=== PATIENT | female | born 1975 | race Caucasian/White ===

== ENCOUNTER 2020-10-29 15:27 | Outpatient (REF) | payer MEDICARE, MEDICAID, SELFPAY ==
[2020-10-29 17:43] LABS: MANUAL DIFF FLAG NO
[2020-10-29 17:46] LABS: Basophils Percent Auto 0.3 % (0-2); Eosinophils Absolute Auto 0.1 X10*3/uL (0.0-0.4); Hematocrit 41.1 % (37-47); Hemoglobin 13.8 g/dl (12.0-16.0); Imm Gran Abs Auto 0.01 X10*3/uL (0.00-0.03); Imm Gran Pct Auto 0.2 % (0.0-0.4); Lymphocytes Absolute Auto 1.7 X10*3/uL (1.2-4.9); Lymphocytes Percent Auto 28.2 % (20-40); Mean Corpuscular HGB Conc 33.6 g/dl (31.0-35.0); Mean Corpuscular Hemoglobin 33.7 pg (27.0-33.0); Mean Corpuscular Volume 100.2 fL (80-98); Mean Platelet Volume 8.9 fL (9.4-12.3); Monocytes Absolute Auto 0.2 X10*3/uL (0.1-1.2); Monocytes Percent Auto 3.8 % (2-11); Neutrophils Percent Auto 66.5 % (45-73); Platelet Count 356 X10*3/uL (160-400); Red Cell Distribution Width 14.2 % (11.0-16.0)
[2020-10-29 18:16] LABS: Alanine Aminotransferase 11 U/L (0-31); Albumin Level 4.5 g/dL (3.5-5.0); Alkaline Phosphatase 75 U/L (39-117); Anion Gap 12 (12-20); Aspartate Amino Transferase 16 U/L (5-31); Bilirubin Total 0.3 mg/dL (0.0-1.0); Blood Urea Nitrogen 11 mg/dL (9-16); Calcium 9.9 mg/dL (8.4-10.2); Carbon Dioxide 23 mmol/L (22-29); Chloride 108 mmol/L (96-108); Estimated Glomerular Filt Rate > 60; Glucose Random 92 mg/dL (60-115); Potassium 3.5 mmol/L (3.3-5.1); Sodium 139 mmol/L (135-145); Total Protein 7.3 g/dL (6.5-8.0)
[2020-10-29 18:26] LABS: Rheumatoid Factor < 15.0 IU/mL (<15.0)
[2020-10-29 18:34] LABS: Free T4 (Free Thyroxine) 0.88 ng/dL (0.71-1.85); Thyroid Stimulating Hormone 0.92 uIU/mL (0.32-4.0)
[2020-10-30 14:21] LABS: Anti Nuclear Antibody Screen NEGATIVE (NEGATIVE)
[2020-10-30 19:51] LABS: Thyroglobulin Antibodies <1 IU/mL (< or = 1); Thyroid Peroxidase Antibodies 3 IU/mL (<9)
[2020-10-30 22:16] LABS: Prot Elec - Albumin 4.4 g/dL (3.8-4.8); Prot Elec - Alpha1 0.3 g/dL (0.2-0.3); Prot Elec - Alpha2 0.8 g/dL (0.5-0.9); Prot Elec - Beta 1 0.5 g/dL (0.4-0.6); Prot Elec - Beta 2 0.4 g/dL (0.2-0.5); Prot Elec - Gamma 1.1 g/dL (0.8-1.7); Prot Elec - Total Protein 7.4 g/dL (6.1-8.1)
[2020-10-31 05:21] LABS: Immunoglobulin E 329 kU/L (<OR=114)
[2020-10-31 12:21] LABS: Antibody to SS-A Antigen <1.0 NEG AI (<1.0 NEG); Antibody to SS-B Antigen <1.0 NEG AI (<1.0 NEG); SM/Ribonucleoprotein Ab <1.0 NEG AI (<1.0 NEG); Smith Protein <1.0 NEG AI (<1.0 NEG)
[2020-10-31 13:31] LABS: Immunoglobulin A 236 mg/dL (47-310); Immunoglobulin M 45 mg/dL (50-300)
[2020-10-31 19:37] LABS: Immunoglobulin G Subclass 1 668 mg/dL (382-929); Immunoglobulin G Subclass 2 401 mg/dL (241-700); Immunoglobulin G Subclass 3 61 mg/dL (22-178); Immunoglobulin G Subclass 4 33.3 mg/dL (4-86); Immunoglobulin G Total 1246 mg/dL (600-1640)
[2020-11-01 20:06] LABS: Mycoplasma Pneumoniae - IgG 2.31 (<=0.90); Mycoplasma Pneumoniae - IgM 64 U/mL (<770)
[2020-11-04 14:35] LABS: Tetanus Antitoxiod Antibody 1.19 IU/mL
[2020-11-05 17:21] LABS: Histamine Release <16 % (<16); TSH 1.04 mIU/L (0.40-4.50); Thyroglobulin Abs <1 IU/mL (< OR = 1)
== END 2020-10-29 15:28 | disposition home or self-care (01) ==
LOC: HO.LAB 15:27
PROVIDERS: Visit Provider Nurse Practitioner Family
DX: T78.09XA Anaphylactic reaction due to other food products, initial encounter (principal); R53.83 Other fatigue; K59.00 Constipation, unspecified; L50.9 Urticaria, unspecified; R11.10 Vomiting, unspecified; R14.0 Abdominal distension (gaseous); J30.9 Allergic rhinitis, unspecified
CPT/HCPCS: 36415; 80053; 82784; 82785; 83520; 84165; 84439; 84443; 85025; 86038; 86039; 86235; 86317; 86343; 86376; 86431; 86738; 86774; 86800

== ENCOUNTER 2020-10-31 12:02 | Outpatient (REF) | payer MEDICARE, MEDICAID, SELFPAY ==
[2020-11-09 12:12] LABS: Creatinine 24Hr Urine 1208 mg/24 h (603 - 1783); N-Methylhistamine, 24Hr Urine 116 mcg/g Cr (30-200); Total Volume 1750 mL
== END 2020-10-31 12:03 | disposition home or self-care (01) ==
LOC: HO.LNP 12:02
PROVIDERS: Visit Provider Nurse Practitioner Family
DX: T78.09XA Anaphylactic reaction due to other food products, initial encounter (principal); R53.83 Other fatigue; L50.9 Urticaria, unspecified; R11.10 Vomiting, unspecified; R14.0 Abdominal distension (gaseous); K59.00 Constipation, unspecified
CPT/HCPCS: 81050; 82542

== ENCOUNTER 2021-12-17 00:38 | Emergency (ER) | payer MEDICARE, MEDICAID, SELFPAY ==
[2021-12-17 00:51] VITALS: BP 122/72; PULSE 90; RESP 14; TEMP 36.7; O2SAT 96; BMI 22.6
--- NOTE | 2021-12-17 00:53 | PC.NURSE ---
Patient arrives to hospital now in police custody from residential after staff found her with snoring respirations in her cell. +etoh this evening. patient endorses nausea and dizziness. she denies pain. she endorses disorientation, but is able to state she's in the hospital and the year. she is speaking full, clear sentences.
--- NOTE | 2021-12-17 01:06 | ECG_ITS ---
Test Reason : SYNCOPE Blood Pressure : / mmHG Vent. Rate : 088 BPM Atrial Rate : 088 BPM P-R Int : 138 ms QRS Dur : 104 ms QT Int : 384 ms P-R-T Axes : 073 024 049 degrees QTc Int : 464 ms Normal sinus rhythm Incomplete right bundle branch block Borderline ECG No previous ECGs available Referred By: Joann Valentine Electronically Signed By:ALEXY LINDQUIST MD
--- NOTE | 2021-12-17 01:09 | ED_ITS ---
HPI - General Adult General Chief complaint: Altered Mental Status Stated complaint: etoh, pd custody Time Seen by Provider: 12/17/21 00:53 Source: patient, EMS and police Mode of arrival: EMS Limitations: no limitations History of Present Illness HPI narrative: Patient comes to the emergency room via EMS and police custody. Patient was found with snoring respirations in her cell. Patient denies using drugs. P atient admits to using alcohol this evening. Patient denies chest pain or shortness of breath. Patient is not sure if she passed out or had a syncopal episode. At this time, patient feels a bit nauseous, and lightheaded. Patient denies falling, hitting her head or losing consciousness. Related Data Allergies Allergy/AdvReac Type Severity Reaction Status Date / Time adhesive [ADHESIVE] Allergy Unknown HIVES Unverified 11/15/19 19:43 fluoxetine [From PROZAC] Allergy Unknown UNKNOWN Unverified 11/15/19 19:43 gabapentin [GABAPENTIN] Allergy Unknown SUICIDAL Unverified 11/15/19 19:43 IDEATIONS iodine [IODINE] Allergy Unknown HIVES Unverified 11/15/19 19:43 lamotrigine [LAMOTRIGINE] Allergy Unknown PABLO Unverified 11/15/19 19:43 JORGE SYNDROME polymyxin B [From POLYTRIM] Allergy Unknown ITCHING Unverified 11/15/19 19:43 trimethoprim [From POLYTRIM] Allergy Unknown ITCHING Unverified 11/15/19 19:43 MONASTAT Allergy Unknown BURNING Uncoded 11/15/19 19:43 ITCHING PAIN Review of Systems Review of Systems: Constitutional : No Weight loss, No Fever, No Chills, No Night Sweats, No Fatigue, No Malaise ENT/Mouth : No Hearing loss, No Ear Pain, No Nasal Congestion, No Sinus Pain, No Hoarseness, No sore throat, No Rhinorrhea, No Swallowing Difficulty Eyes: No Eye Pain, No Swelling, No Redness, No Foreign Body, No Discharge, No Vision Changes Cardiovascular : No Chest Pain, No SOB, No Dyspnea on Exertion, No Orthopnea, No Edema, No Palpitations Respiratory : No Cough, No Sputum, No Wheezing, No Smoke Exposure, No Dyspnea Gastrointestinal : Complaining of Nausea, No Vomiting, No Diarrhea, No Constipation, No abdominal Pain, No Hematochezia, No Melena Genitourinary : no irregular bleeding, No Dysuria, No Urinary Frequency, No Hematuria, No Urinary Incontinence, No Urgency, No Flank Pain, No Urinary Flow Changes, No Hesitancy Musculoskeletal : No joint pain, No Myalgias, No Joint Swelling Skin : No Skin Lesions, No rash Neuro : No Weakness, No Numbness, No Paresthesias, No Loss of Consciousness, no headache, complaining of feeling lightheaded, no spinning station Psych : No Anxiety/Panic, No Depression, No SI/HI/AH/VH, No Social Issues, Heme/Lymph: No Bruising, No Bleeding,No Lymphadenopathy Endocrine : No Polyuria, No Polydipsia, No Temperature Intolerance [facility] Past Medical History Medical History Alcohol abuse Social History Social History Advance Directives: No Physical Exam ED Vital Signs: Vital Signs - 24 hr 12/17/21 00:51 Temperature 98.0 F Pulse Rate 90 Respiratory Rate 14 Blood Pressure 122/72 Pulse Oximetry 96 Oxygen Delivery Method Room Air BMI result Body Mass Index 22.6 Const Other: Appearance: Alert. Oriented X3. No acute distress. Eyes: Pupils equal, round and reactive to light. ENT: Pharynx normal. Neck: Normal inspection. Neck supple. No lymph nodes noted. No crepitus CVS: Normal heart rate and rhythm. Pulses normal. Normal S1 and S2 Respiratory: No respiratory distress. Breath sounds normal. No Wheezing. No rales Abdomen: Soft and nontender. No rigidity. No distention. Skin: Skin warm and dry. Normal skin color. Normal skin turgor. Ecchymosis in both wrists Extremities: No lower extremity edema. No Lacerations. No Rash Neuro: Oriented X 3. No motor deficit. No sensory deficit. Moving all extremities. No slurred speech. CN 2 through 12 grossly intact Psych: calm, cooperative, normal affect Course Course Course Narrative: I discussed with the patient that part of the workup for syncope includes getting a blood alcohol level, patient agreeable. Patient states that she admits that she uses medical marijuana and had alcohol earlier today. Denies using any other substances. I discussed the labs with the patient, no acute findings, D-dimer and troponin negative, EKG wnl Medical Decision Making Lab Data Result diagrams: 12/17/21 01:15 12/17/21 01:15 Labs: Lab Results 12/17/21 12/17/21 12/17/21 Range/Units 01:15 01:15 01:15 WBC 3.4 L (4.8-10.8) X10*3/uL RBC 4.04 L (4.20-5.50) X10*6/uL Hgb 14.4 (12.0-16.0) g/dl Hct 42.4 (37.0-47.0) % MCV 105.0 H (80.0-98.0) fL MCH 35.6 H (27.0-33.0) pg MCHC 34.0 (31.0-35.0) g/dl RDW 12.5 (11.0-16.0) % Plt Count 292 (160-400) X10*3/uL MPV 8.9 L (9.4-12.3) fL Immature Gran % (Auto) 0.6 H (0.0-0.4) % Neut % (Auto) 51.4 (45-73) % Lymph % (Auto) 40.7 H (20-40) % [place] % (Auto) 4.7 (2-11) % Eos % (Auto) 2.0 (0-4) % Baso % (Auto) 0.6 (0-2) % Lymph # (Auto) 1.4 (1.2-4.9) X10*3/uL [place] # (Auto) 0.2 (0.1-1.2) X10*3/uL Eos # (Auto) 0.1 (0.0-0.4) X10*3/uL Baso # (Auto) 0.0 (0.0-0.2) X10*3/uL Abs Immat Gran (auto) 0.02 (0.00-0.03) X10*3/uL Absolute Neuts (auto) 1.8 L (2.0-8.3) x10*3/uL Absolute Nucleated RBC 0.000 (0.0-0.012) X10*3/uL Nucleated RBC % (auto) 0.0 (0.0-0.2) /100WBC PT 11.9 (10.0-13.1) SEC INR 1.0 (0.9-1.1) D-Dimer High Sensitivty NG/ML Sodium 145 (135-145) mmol/L Potassium 4.0 (3.3-5.1) mmol/L Chloride 114 H (96-108) mmol/L Carbon Dioxide 21 L (22-29) mmol/L Anion Gap 14 (12-20) BUN 9 (9-16) mg/dL Creatinine 0.79 (0.5-1.4) mg/dL Estim Creat Clear Calc 82.4 Estimated GFR > 60 Random Glucose 97 (60-115) mg/dL Calcium 8.9 D (8.4-10.2) mg/dL Magnesium 2.0 (1.6-2.6) mg/dL Total Bilirubin 0.2 (0.0-1.0) mg/dL Direct Bilirubin < 0.2 (0.0-0.5) mg/dL AST 28 D (5-31) U/L ALT 37 H (0-31) U/L Alkaline Phosphatase 75 (39-117) U/L Troponin I High Sens (<3.5-17.0) ng/L Total Protein 7.6 (6.5-8.0) g/dL Albumin 4.4 (3.5-5.0) g/dL Beta HCG, Quant < 2 mIU/mL Ethyl Alcohol mg/dL COVID-19 ([facility]) (Negative) COVID-19 Clin Com 12/17/21 12/17/21 12/17/21 Range/Units 01:15 01:15 01:15 WBC (4.8-10.8) X10*3/uL RBC (4.20-5.50) X10*6/uL Hgb (12.0-16.0) g/dl Hct (37.0-47.0) % MCV (80.0-98.0) fL MCH (27.0-33.0) pg MCHC (31.0-35.0) g/dl RDW (11.0-16.0) % Plt Count (160-400) X10*3/uL MPV (9.4-12.3) fL Immature Gran % (Auto) (0.0-0.4) % Neut % (Auto) (45-73) % Lymph % (Auto) (20-40) % [place]ima % (Auto) (2-11) % Eos % (Auto) (0-4) % Baso % (Auto) (0-2) % Lymph # (Auto) (1.2-4.9) X10*3/uL [place] # (Auto) (0.1-1.2) X10*3/uL Eos # (Auto) (0.0-0.4) X10*3/uL Baso # (Auto) (0.0-0.2) X10*3/uL Abs Immat Gran (auto) (0.00-0.03) X10*3/uL Absolute Neuts (auto) (2.0-8.3) x10*3/uL Absolute Nucleated RBC (0.0-0.012) X10*3/uL Nucleated RBC % (auto) (0.0-0.2) /100WBC PT (10.0-13.1) SEC INR (0.9-1.1) D-Dimer High Sensitivty NG/ML Sodium (135-145) mmol/L Potassium (3.3-5.1) mmol/L Chloride (96-108) mmol/L Carbon Dioxide (22-29) mmol/L Anion Gap (12-20) BUN (9-16) mg/dL Creatinine (0.5-1.4) mg/dL Estim Creat Clear Calc Estimated GFR Random Glucose (60-115) mg/dL Calcium (8.4-10.2) mg/dL Magnesium (1.6-2.6) mg/dL Total Bilirubin (0.0-1.0) mg/dL Direct Bilirubin (0.0-0.5) mg/dL AST (5-31) U/L ALT (0-31) U/L Alkaline Phosphatase (39-117) U/L Troponin I High Sens < 3.5 (<3.5-17.0) ng/L Total Protein (6.5-8.0) g/dL Albumin (3.5-5.0) g/dL Beta HCG, Quant mIU/mL Ethyl Alcohol 147 mg/dL COVID-19 ([facility]) Negative (Negative) COVID-19 Clin Com See Note 12/17/21 Range/Units 01:15 WBC (4.8-10.8) X10*3/uL RBC (4.20-5.50) X10*6/uL Hgb (12.0-16.0) g/dl Hct (37.0-47.0) % MCV (80.0-98.0) fL MCH (27.0-33.0) pg MCHC (31.0-35.0) g/dl RDW (11.0-16.0) % Plt Count (160-400) X10*3/uL MPV (9.4-12.3) fL Immature Gran % (Auto) (0.0-0.4) % Neut % (Auto) (45-73) % Lymph % (Auto) (20-40) % [place] % (Auto) (2-11) % Eos % (Auto) (0-4) % Baso % (Auto) (0-2) % Lymph # (Auto) (1.2-4.9) X10*3/uL [place] # (Auto) (0.1-1.2) X10*3/uL Eos # (Auto) (0.0-0.4) X10*3/uL Baso # (Auto) (0.0-0.2) X10*3/uL Abs Immat Gran (auto) (0.00-0.03) X10*3/uL Absolute Neuts (auto) (2.0-8.3) x10*3/uL Absolute Nucleated RBC (0.0-0.012) X10*3/uL Nucleated RBC % (auto) (0.0-0.2) /100WBC PT (10.0-13.1) SEC INR (0.9-1.1) D-Dimer High Sensitivty < 150 NG/ML Sodium (135-145) mmol/L Potassium (3.3-5.1) mmol/L Chloride (96-108) mmol/L Carbon Dioxide (22-29) mmol/L Anion Gap (12-20) BUN (9-16) mg/dL Creatinine (0.5-1.4) mg/dL Estim Creat Clear Calc Estimated GFR Random Glucose (60-115) mg/dL Calcium (8.4-10.2) mg/dL Magnesium (1.6-2.6) mg/dL Total Bilirubin (0.0-1.0) mg/dL Direct Bilirubin (0.0-0.5) mg/dL AST (5-31) U/L ALT (0-31) U/L Alkaline Phosphatase (39-117) U/L Troponin I High Sens (<3.5-17.0) ng/L Total Protein (6.5-8.0) g/dL Albumin (3.5-5.0) g/dL Beta HCG, Quant mIU/mL Ethyl Alcohol mg/dL COVID-19 ([facility]) (Negative) COVID-19 Clin Com Discharge Plan Discharge Clinical Impression: Alcohol intoxication Patient Disposition: Home, Self-Care Instructions: Abuse of Alcohol (ED), Alcohol Intoxication (ED) Additional Instructions: Please follow-up with your primary care physician tomorrow. If you have any worsening or new symptoms, please return to the emergency room or call 911
--- OUTSIDE RECORDS SUMMARY | 2021-12-17 01:14 | XMS_ITS | Continuity of Care Document ---
:1975 Author Organization [facility] Address [address] [place] [id number] Care Team Providers Name Role Phone Fernando ANDERSON, Tony Haro Primary Care Physician Encounter [facility] [place] Date(s): 01/18/20 - 02/17/[address] [id number] Attending Physician: AdmTino miner Admitting Physician: Admtr, [id number] Referring Physician: Admtr, [id number] Allergies, Adverse Reactions, Alerts Substance Reaction Severity Status miconazole Active Glutens Active Other Environmental Allergy1 Act christal LaMICtal Active iodine Active 1polymycin Medications Albuterol/Ipratropium Inhaler See Instructions, Refills 0, Maintenance, 12/26/17 12:15:10 EDT, Instructions Replace Required Details Start Date: 12/26/17 Status: OrderedAllegra By Mouth, 0 Refills, Maintenance Start Date: 12/05/12 Status: OrderedAtivan 1 mg oral tablet 1 tablet = 1 mg, By Mouth, Daily, PRN as needed for anxiety, 0 Refills, Maintenance, 12/26/17 12:16:28 EDT, Tablet Start Date: 12/26/17 Status: OrderedBaclofen See Instructions, By Mouth 3 times a day, 0 Refills, Maintenance, 12/26/17 12:14:41 EDT Start Date: 12/26/17 Status: OrderedEpiPen 2-Jose = 0.3 mg, Intramuscular, Once, 0 Refills, Maintenance Start Date: 12/05/12 Status: Orderedfluticasone 27.5 mcg/inh nasal spray See Instructions, Daily, 0 Refills, Maintenance, 12/26/17 12:15:43 EDT Start Date: 12/26/17 Status: OrderedImitrex 50 mg oral tablet See Instructions, 1 tablet By Mouth Once, 0 Refills, Maintenance, 12/26/17 12:14:17 EDT Start Date: 12/26/17 Status: Orderedolopatadine 0.7% ophthalmic solution See Instructions, 1 drops Eyes, Both Daily, 0 Refills, Maintenance, 12/26/17 12:13:50 EDT Start Date: 12/26/17 Status: OrderedParagard IUD See Instructions, Maintenance, 12/05/12 11:26:00, Compound Start Date: 12/05/12 Status: OrderedTopamax Tablet By Mouth, 2 times a day, Maintenance, 10/02/13 10:12:05 Start Date: 10/02/13 Status: OrderedtraZODone 100 mg oral tablet 100 mg, By Mouth, Daily at bedtime, PRN, Take 1/2-1 tab at bedtime for sleep, # 30 tablet, Refills 0, Tot. Refills 0, Maintenance, Sleep, 12/30/17 10:14:52 EDT, Route to Pharmacy Electronically, [id number], [facility]/pharmacy #[id number] Start Date: 12/30/17 Stop Date: 01/29/18 Status: OrderedValACYclovir = 500 mg, By Mouth, 2 times a day, 0 Refills, Maintenance, 12/26/17 12:13:00 EDT Start Date: 12/26/17 Status: OrderedVitamin D3 See Instructions, By Mouth, 0 Refills, Maintenance, 12/26/17 12:16:05 EDT Start Date: 12/26/17 Status: OrderedWellbutrin By Mouth, 0 Refills, Maintenance, 10/02/13 10:12:12 Start Date: 10/02/13 Status: Ordered Problem List Condition Effective Dates Status Health Status Informant Bipolar disorder(Confirmed) Active Childhood asthma(Confirmed) Active depression/anxiety(Confirmed) Active Varicella(Confirmed) Active Social History Social History Type Response Smoking Status Never smoker entered on: 05/01/13 Sex
[2021-12-17 01:23] LABS: Basophils Percent Auto 0.6 % (0-2); Eosinophils Absolute Auto 0.1 X10*3/uL (0.0-0.4); Hematocrit 42.4 % (37.0-47.0); Hemoglobin 14.4 g/dl (12.0-16.0); Imm Gran Abs Auto 0.02 X10*3/uL (0.00-0.03); Imm Gran Pct Auto 0.6 % (0.0-0.4); Lymphocytes Absolute Auto 1.4 X10*3/uL (1.2-4.9); Lymphocytes Percent Auto 40.7 % (20-40); MANUAL DIFF FLAG NO; Mean Corpuscular Hemoglobin 35.6 pg (27.0-33.0); Mean Platelet Volume 8.9 fL (9.4-12.3); Monocytes Absolute Auto 0.2 X10*3/uL (0.1-1.2); Monocytes Percent Auto 4.7 % (2-11); Neutrophils Absolute Auto 1.8 x10*3/uL (2.0-8.3); Neutrophils Percent Auto 51.4 % (45-73); Platelet Count 292 X10*3/uL (160-400); Red Blood Count 4.04 X10*6/uL (4.20-5.50); Red Cell Distribution Width 12.5 % (11.0-16.0); White Blood Count 3.4 X10*3/uL (4.8-10.8)
[2021-12-17 01:30] LABS: Prothrombin Time 11.9 SEC (10.0-13.1)
[2021-12-17 01:35] LABS: D Dimer High Sensitivity < 150 NG/ML
[2021-12-17 01:38] LABS: COVID-19 Test Negative (Negative)
[2021-12-17 01:40] LABS: Ethanol 147 mg/dL
[2021-12-17 01:42] LABS: Alanine Aminotransferase 37 U/L (0-31); Albumin Level 4.4 g/dL (3.5-5.0); Alkaline Phosphatase 75 U/L (39-117); Anion Gap 14 (12-20); Aspartate Amino Transferase 28 U/L (5-31); Bilirubin Direct < 0.2 mg/dL (0.0-0.5); Bilirubin Total 0.2 mg/dL (0.0-1.0); Blood Urea Nitrogen 9 mg/dL (9-16); Calcium 8.9 mg/dL (8.4-10.2); Carbon Dioxide 21 mmol/L (22-29); Chloride 114 mmol/L (96-108); Creatinine Clr Calc Pharmacy 82.4; Estimated Glomerular Filt Rate > 60; Glucose Random 97 mg/dL (60-115); Sodium 145 mmol/L (135-145); Total Protein 7.6 g/dL (6.5-8.0)
[2021-12-17 01:46] LABS: Troponin-I High Sensitivity < 3.5 ng/L (<3.5-17.0)
[2021-12-17 01:49] LABS: HCG Quantitative < 2 mIU/mL
== END 2021-12-17 02:32 | disposition home or self-care (01) ==
PROVIDERS: Emergency Provider Emergency Medicine; PCP Internal Medicine
DX: F10.129 Alcohol abuse with intoxication, unspecified (principal); Y90.6 Blood alcohol level of 120-199 mg/100 ml; Z20.822 Contact with and (suspected) exposure to COVID-19; Z79.899 Other long term (current) drug therapy
CPT/HCPCS: 36415; 80048; 80076; 82077; 83735; 84484; 84702; 85025; 85379; 85610; 87635; 93005; 99282; 99283